=== PATIENT | male | born 1945 | race Caucasian/White ===

== ENCOUNTER 2016-03-29 09:46 | Emergency (ER) | payer MEDICARE, MEDICAID ==
[2016-03-29] MEDS ORDERED: Bacitracin Zinc 1 Packet ONE (10:37)
[2016-03-29] MEDS ORDERED: Adacel (T-DAP) 0.5 ML VIAL ONE (10:41)
--- NOTE | 2016-03-29 11:26 | ERRECORD ---
[facility] EMERGENCY RECORD HPI FOOT (10:11 DHAM) CHIEF COMPLAINT: Patient presents for evaluation of injury, to the left foot, to the left foot. HISTORIAN: History provided by patient, brought from physical therapy with persistent bleeding at left 3rd toe. He was in the bathroom in the middle of the night last pm and he was barefoot. His left foot slipped and hit the wall with his left 3rd toe. Denies pain, but "I don't feel my feet very well with my diabetes.". MECHANISM OF INJURY: Mechanism of injury: Blunt trauma, by direct blow. LOCATION: Symptoms are localized, most severe in the third toe. QUALITY: no pain. SEVERITY: Current severity of pain rated as 0/10. TIME COURSE: Sudden onset of symptoms, 6, hours prior to arrival, There has been no change in the patient's symptoms over time, still bleeding since the trauma. ASSOCIATED WITH: No associated alcohol use, No associated ankle pain, No associated coolness to touch, No associated distal injury, Associated with distal neuro complaint, constant, No associated erythema, No associated fever, No associated hip pain, No associated inability to ambulate, No associated inability to bear weight, No associated knee pain, Associated with open wounds, abrasion, bleeding uncontrolled, 0 to 1.5 cm in length, cutaneous, No associated pain on walking, Pain is not out of proportion, No associated warmth, No associated weakness distal to injury. EXACERBATED BY: Patient's condition exacerbated by nothing. RELIEVED BY: Patient's condition relieved by nothing. ROS (10:17 DHAM) CONSTITUTIONAL: Historian denies chills, denies fever, denies night sweats, denies weakness. MUSCULOSKELETAL: s/p amputation ldft 1st and 2nd toes. SKIN: Historian reports skin lesions, chronic healing ulcers right foot and small area on the left foot. NEUROLOGIC: Historian reports sensory changes, chronic decreased sensation to bilat hands and feet. HEMO/LYMPHATIC: Historian denies abnormal blood clotting, denies easy bruising. ALLERGIC/IMMUNOLOGIC: Historian reports poor healing. PAST MEDICAL HISTORY (09:56 LGIB) MEDICAL HISTORY: Flu vaccine not up to date, Tetanus not up to date, Pneumococcal vaccine not up to date, Notes: GOUT, NEUROPATHY, Past medical history includes cardiac history, congestive heart failure, Past medical history includes history of diabetes, Past medical history includes history of hyperlipidemia, Past medical history includes history of hypertension, Past medical history includes pulmonary disease, &a-1R&a+25V*p+0X*u7798Y*c202B*c15G*c2P*p-0X&a-25V&a+1R Name: David Shah : 1945 M70 MedRec: [id number] AcctNum: [id number] Prepared: SunMar 30, 2016 05:28 by Interface Page 1 of 4 pMD [facility] EMERGENCY RECORD chronic obstructive pulmonary disease, Past medical history includes renal disease, end stage renal disease, dialysis Tues, Thurs SAt. Verified 03/29/16. MALE SURGICAL HISTORY: Carterized esophagus, dialysis shunt LUE, TOES AMPUTATION LEFT FOOT, 5TH TOE ON RIGHT FOOT AMPUTATED. VERIFIED 03/29/16. PSYCHIATRIC HISTORY: No previous psychiatric history. Verified 03/29/16. SOCIAL HISTORY: Patient denies alcohol use, Patient denies drug use, Patient is a former tobacco user, smoked cigarettes, Patient quit smoking more than 10 years ago. VERIFIED 03/29/16. FAMILY HISTORY: Family istory is not significant. KNOWN ALLERGIES No Known Drug Allergies CURRENT MEDICATIONS Symbicort: HFA AEROSOL WITH ADAPTER (GRAM) : Strength - 160 mcg-4.5 mcg/actuation : INHALATION Patient Dose: 2 puff(s) Inhaler 2 times a day. (10:10 LGIB) Lantus Solostar: INSULIN PEN (ML) : Strength - 100 unit/mL (3 mL) : [15 mL(s)] : SUBCUTANEOUS Patient Dose: 40 units Subcutaneous 2 times a day. (10:10 LGIB) Spiriva with HandiHaler: CAPSULE, WITH INHALATION DEVICE : Strength - 18 mcg : INHALATION Patient Dose: 1 puff(s) Inhaler once a day. (10:10 LGIB) gabapentin: CAPSULE : Strength - 300 mg : ORAL Patient Dose: 300 mg Oral 2 times a day. (10:10 LGIB) aspirin: TABLET : Strength - 81 mg : ORAL Patient Dose: 81 mg Oral once a day. (10:10 LGIB) allopurinol: TABLET : Strength - 100 mg : ORAL Patient Dose: 100 mg Oral 2 times a day. (10:11 LGIB) VITAL SIGNS VITAL SIGNS: BP: 130/94, Pulse: 82, Resp: 18, Temp: 97.9 (Oral), Pain: 0, O2 sat: 94 on Room Air, Time: 03/29/2016 09:57. (09:57 LSMI) BP: 135/67, Pulse: 77, Resp: 20, Pain: 0, O2 sat: 100 on 3L Oxygen, Time: 03/29/2016 10:22. (10:22 LSMI) BP: 132/76, Pulse: 76, Resp: 20, Temp: 98.0 (Oral), Pain: 0, O2 sat: 99 on 3L Oxygen, Time: 03/29/2016 10:45. (10:45 LSMI) PHYSICAL EXAM (10:22 DHAM) CONSTITUTIONAL: Vital Signs Reviewed, Patient afebrile, Pulse normal, Blood pressure normal, Respiratory rate normal, Patient &a-1R&a+25V*p+0X*a2946Q*c202B*c15G*c2P*p-0X&a-25V&a+1R Name: David Shah : 1945 M70 MedRec: [id number] AcctNum: [id number] Prepared: Tabatha Mar 30, 2016 05:28 by Interface Page 2 of 4 pMD [facility] EMERGENCY RECORD appears non toxic, Patient appears pain free, Patient alert and oriented to person, place and time. LOWER EXTREMITY: 1cm x .8cm skin tear to medial aspect of the left 3rd toe distally. there is a tiny pinpoint area of dark red bleeding that is persistent. no redness swelling or significant pain to palpation of the left 3rd toe. chronic appearing healing ulcer to plantar surface of left toot that is .5x.5cm and clean and dry. sensation is diffusely decreased. cap refill is symmetrically decreased. NEURO: Mohan coma scale 15, Neuro exam findings include patient oriented to person, place and time, Speech normal, Gait abnormal, unable to ambulate, Memory normal, Cranial nerves intact. SKIN: Skin exam included findings of skin warm, dry, and normal in color, see LE above. RADIOLOGYINTERPRETATION (10:33 DHAM) LOWER EXTREMITIES: Toe films, of toes on the left foot show, non-displaced fracture, of the distal phalanx third digit, no dislocation, Other findings: avulsion fx of proximal end of the distal phalanx at the articular surface. Involves 15% of joint surface. s/p 1st and 2nd toe amputations. MEDICATION ADMINISTRATION SUMMARY Drug Name: bacitracin zinc, Dose Ordered: 1 jose f, Route: Topical, Status: Given, Time: 10:52 03/29/2016, Drug Name: Adacel(Tdap Adolesn/Adult)(PF), Dose Ordered: 0.5 mL, Route: Intramuscular, Status: Given, Time: 10:45 03/29/2016, Detailed record available in Medication Service section. DOCTOR NOTES TEXT: silver nitrate was used in a small area to achieve hemostasis of this small bleeding area. (10:30 DHAM) no treatment appears indicated for this small avulsion fx of the distal phalanx. dressing applied. (10:35 DHAM) PROBLEM LIST No recorded problems DIAGNOSIS (10:40 DHAM) FINAL: PRIMARY: Toe fracture, ADDITIONAL: abrasion left 3rd toe. PRESCRIPTION (10:42 DHAM) Keflex: CAPSULE (HARD, SOFT, ETC.) : 500 mg : ORAL : Quantity: 1 Unit: cap(s) Route: ORAL Schedule: 3 times a day Dispense: 30 Unit: cap(s) May substitute. Refills: No Refills . NOTES: T 1 cap po tid for 10 days. Just in case for infection &a-1R&a+25V*p+0X*z3240X*c202B*c15G*c2P*p-0X&a-25V&a+1R Name: David Shah : 1945 M70 MedRec: [id number] AcctNum: [id number] Prepared: [facility] Mar 30, 2016 05:28 by Interface Page 3 of 4 pMD [facility] EMERGENCY RECORD No refills. DISPOSITION PATIENT: Disposition Type: Discharge, Disposition: *Discharge Home. (10:40 DHAM) Patient left the department. (11:20 LGIB) Sanchez: JELENA=MD Guzman, Jovan LGIB=KENNEDY Trinidad, Camryn LSMI=KIMMY Hurd Leah &a-1R&a+25V*p+0X*m1009Z*c202B*c15G*c2P*p-0X&a-25V&a+1R Name: David Shah : 1945 M70 MedRec: [id number] AcctNum: [id number] Prepared: Tabatha Mar 30, 2016 05:28 by Interface Page 4 of 4 pMD MTDD
--- NOTE | 2016-03-29 11:32 | PICIS ---
[facility] EMERGENCY RECORD TRIAGE (09:53 LGIB) PATIENT: NAME: David Shah, AGE: 70, GENDER: male, : Sun1945, TIME OF GREET: SunMar 29, 2016 09:47, PREFERRED LANGUAGE: Cameroonian, ETHNICITY: Not or , ECODE BILLING MAP: [facility], SSN: [id number], Zip Code: [address], KG WEIGHT: [phone], PHONE: , , , PERSON ID: [id number], PAYMENT: [employer], PCP: DO PIEDRA KRISTEL. (09:53 LGIB) TRIAGE NOTES: KICKED A WALL ON ACCIDENT YESTERDAY AND HAVING BLOOD OOZING FROM WOUND ON LEFT FOOT. (09:53 LGIB) COMPLAINT: LEFT FOOT INJURY. (09:53 LGIB) ADMISSION: URGENCY: 3 Urgent, ADMISSION SOURCE: Home, TRANSPORT: CAR, BED: ER -03. (09:53 LGIB) SIRS SCORING: Heart Rate 55-109 (0), Temp range 96.8-101.1 (0), respiratory rate 12-24 (0), Mental Status altered: no (0), Total SIRS Score 0. (09:57 LGIB) PROVIDERS: TRIAGE NURSE: Camryn Trinidad RN. (09:53 LGIB) PREVIOUS VISIT ALLERGIES: No Known Drug Allergies. (09:53 LGIB) No Known Drug Allergies. (09:56 LGIB) KNOWN ALLERGIES No Known Drug Allergies CURRENT MEDICATIONS Symbicort: HFA AEROSOL WITH ADAPTER (GRAM) : Strength - 160 mcg-4.5 mcg/actuation : INHALATION Patient Dose: 2 puff(s) Inhaler 2 times a day. (10:10 LGIB) Lantus Solostar: INSULIN PEN (ML) : Strength - 100 unit/mL (3 mL) : [15 mL(s)] : SUBCUTANEOUS Patient Dose: 40 units Subcutaneous 2 times a day. (10:10 LGIB) Spiriva with HandiHaler: CAPSULE, WITH INHALATION DEVICE : Strength - 18 mcg : INHALATION Patient Dose: 1 puff(s) Inhaler once a day. (10:10 LGIB) gabapentin: CAPSULE : Strength - 300 mg : ORAL Patient Dose: 300 mg Oral 2 times a day. (10:10 LGIB) aspirin: TABLET : Strength - 81 mg : ORAL Patient Dose: 81 mg Oral once a day. (10:10 LGIB) allopurinol: TABLET : Strength - 100 mg : ORAL Patient Dose: 100 mg Oral 2 times a day. (10:11 LGIB) VITAL SIGNS VITAL SIGNS: BP: 130/94, Pulse: 82, Resp: 18, Temp: 97.9 (Oral), Pain: 0, O2 sat: 94 on Room Air, Time: 03/29/2016 09:57. (09:57 LSMI) BP: 135/67, Pulse: 77, Resp: 20, Pain: 0, O2 sat: 100 on 3L Oxygen, Time: &a-1R&a+25V*p+0X*m9781B*c202B*c15G*c2P*p-0X&a-25V&a+1R Name: David Shah : 1945 M70 MedRec: [id number] AcctNum: [id number] Prepared: [facility] Mar 30, 2016 05:34 by Interface Page 1 of 6 pMD [facility] EMERGENCY RECORD 03/29/2016 10:22. (10:22 LSMI) BP: 132/76, Pulse: 76, Resp: 20, Temp: 98.0 (Oral), Pain: 0, O2 sat: 99 on 3L Oxygen, Time: 03/29/2016 10:45. (10:45 LSMI) NURSING ASSESSMENT: EXTREMITY LOWER (10:00 LGIB) CONSTITUTIONAL: Complex assessment performed, Patient arrives, via hospital wheelchair, Gait steady, History obtained from patient, Patient appears comfortable, Patient cooperative, Patient alert, Oriented to person, place and time, Skin warm, Skin dry, Skin normal in color, Mucous membranes pink, Mucous membranes moist, Patient is well-groomed, Patient complains of LEFT FOOT INJURY, PT KICKED A WALL ON ACCIDENT LAST NIGHT AND IS HAVING BLOOD OOZING FROM THIRD TOE OF LEFT FOOT. BLEEDING CONTROLLED WITH PRESSURE BUT ONCE PRESSURE REMOVED, BLEEDING RESUMES. PAIN: Patient rates pain as 0 out of 10. LEFT LOWER EXTREMITY: Left lower extremity assessment findings include capillary refill less than 2 seconds, Skin color normal, Skin temperature warm, Distal sensation not intact, WNL FOR PATIENT, CANNOT FEEL FEET, dorsalis pedis pulse is +3, Notes: PT IS MISSING FIRST AND SECOND TOES DUE TO AMPUTATION. THIRD TOE IS THE BLEEDING TOE AND IS COMING FROM AN EXISTING WOUND TO THE TIP OF THE TOE. SAFETY: Side rails up, Cart/Stretcher in lowest position, Call light within reach, Hospital ID band on. NURSING PROCEDURE: BEDSIDE RADIOLOGY (10:19 LGIB) BEDSIDE RADIOLOGY: Portable x-ray performed, of the left foot. NURSING PROCEDURE: DISCHARGE NOTE (11:17 LGIB) DISCHARGE: Patient discharged to home, in a wheelchair, driving self, unaccompanied, Summary of Care printed/ provided, Patient requested and was provided an electronic copy of Discharge Instructions, Discharge instructions given to patient, Simple or moderate discharge teaching performed, Prescriptions given and instructions on side effects given, Above person(s) verbalized understanding of discharge instructions and follow-up care, Patient treated and evaluated by physician, Notes: Discharged by KIMMY Torres. BELONGINGS: Belongings and valuables with patient at time of discharge include:, Belongings remain with patient, Valuables remain with patient. NURSING PROCEDURE: NURSE NOTES (10:45 LGIB) NURSES NOTES: Notes: BACITRACIN APPLIED TO TOE, WRAPPED WITH TELFA AND TAPE. ORDER DETAILS Order Name: WOUND CARE ED, Status: Done, Time: 10:45 03/29/2016, User: RULA, &a-1R&a+25V*p+0X*p4709O*c202B*c15G*c2P*p-0X&a-25V&a+1R Name: David Shah : 1945 M70 MedRec: [id number] AcctNum: [id number] Prepared: Tabatha Mar 30, 2016 05:34 by Interface Page 2 of 6 pMD [facility] EMERGENCY RECORD - Ordered for: MD Hinds Darren, - Entered by: MD Hinds Darren - Aiyana Mar 29, 2016 10:44, - Quantity: 1, Order Name: XR Toe(s) Lt Min 2 View, Status: Active, Time: 10:09 03/29/2016, User: [facility], - Ordered for: MD Hinds Darren, - Entered by: MD Hinds Darren - SunMar 29, 2016 10:09, - Quantity: 1. MEDICATION ADMINISTRATION SUMMARY Drug Name: bacitracin zinc, Dose Ordered: 1 jose f, Route: Topical, Status: Given, Time: 10:52 03/29/2016, Drug Name: Adacel(Tdap Adolesn/Adult)(PF), Dose Ordered: 0.5 mL, Route: Intramuscular, Status: Given, Time: 10:45 03/29/2016, Detailed record available in Medication Service section. MEDICATION SERVICE Adacel(Tdap Adolesn/Adult)(PF): Order: Adacel(Tdap Adolesn/Adult)(PF) (diphth,pertuss(acell),tet vac/preservative free) - Dose: 0.5 mL : Intramuscular Schedule: Now Ordered by: Jovan Hinds MD Entered by: Jovan Hinds MD SunMar 29, 2016 10:40 Documented as given by: Melissa Hurd LVN SunMar 29, 2016 10:45 Patient, Medication, Dose, Route and Time verified prior to administration. IM immunization, Medication administered to right deltoid, Correct patient, time, route, dose and medication confirmed prior to administration, Patient advised of actions and side-effects prior to administration, Allergies confirmed and medications reviewed prior to administration, Patient in position of comfort, Side rails up, Cart in lowest position, Call light in reach. bacitracin zinc: Order: bacitracin zinc - Dose: 1 jose f : Topical Schedule: Now Ordered by: Jovan Hinds MD Entered by: Jovan Hinds MD SunMar 29, 2016 10:46 Documented as given by: Camryn Trinidad RN SunMar 29, 2016 10:52 Patient, Medication, Dose, Route and Time verified prior to administration. Correct patient, time, route, dose and medication confirmed prior to administration, Patient advised of actions and side-effects prior to administration, Allergies confirmed and medications reviewed prior to administration, Advised not to ambulate without assistance, Patient in position of comfort, Side rails up, Cart in lowest position. HPI FOOT (10:11 DHAM) CHIEF COMPLAINT: Patient presents for evaluation of injury, to the left foot, to the left foot. &a-1R&a+25V*p+0X*o2479B*c202B*c15G*c2P*p-0X&a-25V&a+1R Name: David Shah : 1945 M70 MedRec: [id number] AcctNum: [id number] Prepared: Tabatha Mar 30, 2016 05:34 by Interface Page 3 of 6 pMD [facility] EMERGENCY RECORD HISTORIAN: History provided by patient, brought from physical therapy with persistent bleeding at left 3rd toe. He was in the bathroom in the middle of the night last pm and he was barefoot. His left foot slipped and hit the wall with his left 3rd toe. Denies pain, but "I don't feel my feet very well with my diabetes.". MECHANISM OF INJURY: Mechanism of injury: Blunt trauma, by direct blow. LOCATION: Symptoms are localized, most severe in the third toe. QUALITY: no pain. SEVERITY: Current severity of pain rated as 0/10. TIME COURSE: Sudden onset of symptoms, 6, hours prior to arrival, There has been no change in the patient's symptoms over time, still bleeding since the trauma. ASSOCIATED WITH: No associated alcohol use, No associated ankle pain, No associated coolness to touch, No associated distal injury, Associated with distal neuro complaint, constant, No associated erythema, No associated fever, No associated hip pain, No associated inability to ambulate, No associated inability to bear weight, No associated knee pain, Associated with open wounds, abrasion, bleeding uncontrolled, 0 to 1.5 cm in length, cutaneous, No associated pain on walking, Pain is not out of proportion, No associated warmth, No associated weakness distal to injury. EXACERBATED BY: Patient's condition exacerbated by nothing. RELIEVED BY: Patient's condition relieved by nothing. ROS (10:17 DHAM) CONSTITUTIONAL: Historian denies chills, denies fever, denies night sweats, denies weakness. MUSCULOSKELETAL: s/p amputation ldft 1st and 2nd toes. SKIN: Historian reports skin lesions, chronic healing ulcers right foot and small area on the left foot. NEUROLOGIC: Historian reports sensory changes, chronic decreased sensation to bilat hands and feet. HEMO/LYMPHATIC: Historian denies abnormal blood clotting, denies easy bruising. ALLERGIC/IMMUNOLOGIC: Historian reports poor healing. PAST MEDICAL HISTORY (09:56 LGIB) MEDICAL HISTORY: Flu vaccine not up to date, Tetanus not up to date, Pneumococcal vaccine not up to date, Notes: GOUT, NEUROPATHY, Past medical history includes cardiac history, congestive heart failure, Past medical history includes history of diabetes, Past medical history includes history of hyperlipidemia, Past medical history includes history of hypertension, Past medical history includes pulmonary disease, chronic obstructive pulmonary disease, Past medical history includes renal disease, end stage renal disease, dialysis Tues, Thurs SAt. Verified 03/29/16. &a-1R&a+25V*p+0X*a3110D*c202B*c15G*c2P*p-0X&a-25V&a+1R Name: David Shah : 1945 M70 MedRec: [id number] AcctNum: [id number] Prepared: Tabatha Mar 30, 2016 05:34 by Interface Page 4 of 6 pMD [facility] EMERGENCY RECORD MALE SURGICAL HISTORY: Carterized esophagus, dialysis shunt LUE, TOES AMPUTATION LEFT FOOT, 5TH TOE ON RIGHT FOOT AMPUTATED. VERIFIED 03/29/16. PSYCHIATRIC HISTORY: No previous psychiatric history. Verified 03/29/16. SOCIAL HISTORY: Patient denies alcohol use, Patient denies drug use, Patient is a former tobacco user, smoked cigarettes, Patient quit smoking more than 10 years ago. VERIFIED 03/29/16. FAMILY HISTORY: Family istory is not significant. PHYSICAL EXAM (10:22 DHAM) CONSTITUTIONAL: Vital Signs Reviewed, Patient afebrile, Pulse normal, Blood pressure normal, Respiratory rate normal, Patient appears non toxic, Patient appears pain free, Patient alert and oriented to person, place and time. LOWER EXTREMITY: 1cm x .8cm skin tear to medial aspect of the left 3rd toe distally. there is a tiny pinpoint area of dark red bleeding that is persistent. no redness swelling or significant pain to palpation of the left 3rd toe. chronic appearing healing ulcer to plantar surface of left toot that is .5x.5cm and clean and dry. sensation is diffusely decreased. cap refill is symmetrically decreased. NEURO: Mohan coma scale 15, Neuro exam findings include patient oriented to person, place and time, Speech normal, Gait abnormal, unable to ambulate, Memory normal, Cranial nerves intact. SKIN: Skin exam included findings of skin warm, dry, and normal in color, see LE above. EVENTS TRANSFER: Triage to Emergency Emergency Room -03. (SunMar 29, 2016 09:53 LGIB) Removed from Emergency Emergency Room -03. (11:20 LGIB) RADIOLOGYINTERPRETATION (10:33 DHAM) LOWER EXTREMITIES: Toe films, of toes on the left foot show, non-displaced fracture, of the distal phalanx third digit, no dislocation, Other findings: avulsion fx of proximal end of the distal phalanx at the articular surface. Involves 15% of joint surface. s/p 1st and 2nd toe amputations. O2SAT INTERPRETATION (10:28 DHAM) O2SAT: Oxygen saturation 100%, on 3L, via nasal cannula, Oxygen saturation interpretation: Normal, Intervention required: Oxygen administration, this is the pt's usual O2 dose and he left his O2 in the car. DOCTOR NOTES TEXT: silver nitrate was used in a small area to achieve hemostasis of this small bleeding area. (10:30 DHAM) &a-1R&a+25V*p+0X*l0540G*c202B*c15G*c2P*p-0X&a-25V&a+1R Name: David Shah : 1945 M70 MedRec: [id number] AcctNum: [id number] Prepared: Tabatha Mar 30, 2016 05:34 by Interface Page 5 of 6 pMD [facility] EMERGENCY RECORD no treatment appears indicated for this small avulsion fx of the distal phalanx. dressing applied. (10:35 DHAM) PROBLEM LIST No recorded problems DIAGNOSIS (10:40 DHAM) FINAL: PRIMARY: Toe fracture, ADDITIONAL: abrasion left 3rd toe. DISPOSITION PATIENT: Disposition Type: Discharge, Disposition: *Discharge Home. (10:40 DHAM) Patient left the department. (11:20 LGIB) INSTRUCTION (10:44 DHAM) DISCHARGE: TOE FRACTURE CLOSED, ABRASION. FOLLOWUP: DO PIEDRA KRISTEL, [facility], [address] [place] [id number], [id number]. SPECIAL: clean toe with soap and water twice a day and cover with bacitracin and dressing. Keflex 500mg three times a day for 10 days See wound care as planned twice a week and have them look at this toe as well. Return for signs of swelling, redness increased pain or any other concerns. PRESCRIPTION (10:42 [facility]) Keflex: CAPSULE (HARD, SOFT, ETC.) : 500 mg : ORAL : Quantity: 1 Unit: cap(s) Route: ORAL Schedule: 3 times a day Dispense: 30 Unit: cap(s) May substitute. Refills: No Refills . NOTES: T 1 cap po tid for 10 days. Just in case for infection No refills. IMAGING TETANUS CONSENT: Image captured from scanner. (10:58 LSMI) *DISCHARGE INSTRUCTIONS RECEIPT: Image captured from scanner. (11:22 LGIB) *SUPPLY CHARGE SHEET: Image captured from scanner. (11:22 LGIB) ADMIN (SunMar 30, 2016 05:22 [facility]) DIGITAL SIGNATURE: MD Hinds Darren. Sanchez: JELENA=MD Hinds Darren LGIB=KENNEDY Trinidad Lauren LSMI=KIMMY Hurd Leah &a-1R&a+25V*p+0X*n2505A*c202B*c15G*c2P*p-0X&a-25V&a+1R Name: David Shah : 1945 M70 MedRec: [id number] AcctNum: [id number] Prepared: SunMar 30, 2016 05:34 by Interface Page 6 of 6 pMD MTDD
--- NOTE | 2016-03-29 18:36 | RAD ---
LEFT THIRD TOE 2 VIEWS: DATE: 03/29/16. FINDINGS: The lateral view suggests a tiny fracture at the base of the distal phalanx dorsally. There is no d islocation. There has been partial amputation of the second toe at the level of the proximal phalan x and most of the great toe as well. There are cortical irregularities of the first metatarsal sugg esting old trauma or infection to it. IMPRESSION: Probable small fracture at the base of the distal phalanx of the third toe. POS: HOME
== END 2016-03-29 11:08 | disposition home or self-care (01) ==
LOC: BURERS 09:46
DX: S92.535A Nondisplaced fracture of distal phalanx of left lesser toe(s), initial encounter for closed fracture (principal); I50.9 Heart failure, unspecified; E11.9 Type 2 diabetes mellitus without complications; E78.5 Hyperlipidemia, unspecified; I12.0 Hypertensive chronic kidney disease with stage 5 chronic kidney disease or end stage renal disease; J44.9 Chronic obstructive pulmonary disease, unspecified; N18.6 End stage renal disease; W22.8XXA Striking against or struck by other objects, initial encounter
CPT/HCPCS: 90471; 90715